=== PATIENT | male | born 1975 | race Caucasian/White ===

== ENCOUNTER → 2017-10-04 | Outpatient (CLI) | payer OTHER ==
--- NOTE | 2017-10-04 15:43 | RADIOLOGY REPORT (SQ) ---
EXAM DESCRIPTION: BARIUM ENEMA COMPLETED DATE/TIME: 10/04/2017 2:15 pm REASON FOR STUDY: LOOP ILEOSTOMY COMPARISON: None. FLUOROSCOPY TIME: 46 SECONDS 15 FLUOROSCOPY images saved to PACS. TECHNIQUE: Following retrograde filling of the colon with water soluble contrast, fluoroscopic spot and overhead imaging of the colon was obtained and saved to PACS. LIMITATIONS: None. FINDINGS: FAGOT HEATER KUB: Non obstructive bowel gas pattern. CECUM: Contrast fills to the level of the cecum and stops, consistent with a closed end. Consistent with patient's history of loop ileostomy. No outside imaging available for comparison. Normal appea ring cecum. Appendix not well visualized. ASCENDING COLON: No masses, strictures, or perforations. TRANSVERSE COLON: No masses, strictures, or perforations. DESCENDING COLON: Small scattered diverticula are identified. No masses, strictures, or perforations . SIGMOID COLON: No masses, strictures, or perforations. RECTUM: No masses, strictures, or perforations. POST EVAC: Partial evacuation of contrast. OTHER: There is normal retrograde flow of contrast. No delays or strictures. IMPRESSION: NORMAL SINGLE CONTRAST ENEMA TO A CLOSED END CECUM CONSISTENT WITH PATIENT'S HISTORY OF LOOP ILEOSTOMY. COMMENT: Quality ID [id number]: Final reports for procedures using fluoroscopy that document radiation exp osure indices, or exposure time and number of fluorographic images (if radiation exposure indices are not available) TECHNICAL DOCUMENTATION: JOB ID: [id number]- All Rights Reserved Reading location - IP/workstation name: [facility]
== END ==
LOC: RAD 12:28
PROVIDERS: ATTEND Surgery
DX: Z09 Encounter for follow-up examination after completed treatment for conditions other than malignant neoplasm (principal); Z93.2 Ileostomy status
CPT/HCPCS: 74270